=== PATIENT | female | born 1945 | race Caucasian/White ===

== ENCOUNTER 2018-10-15 18:48 | Emergency (ER) | payer OTHER, MEDICAID ==
[~2018-10-15] VITALS: Ht 167.6 cm; Wt 55.0 kg
[2018-10-15] MEDS ORDERED: ACETAMINOPHEN 325MG TABLET PO STA (21:33)
[2018-10-15] MEDS ORDERED: LEVOFLOXACIN 750MG PREMIX 150 ML IV ONE (21:45)
[2018-10-15] MEDS ORDERED: SODIUM CHLORIDE 0.9% 1000ML BAG (SEPSIS BOLUS) IV ONE (21:45)
[2018-10-15 21:58] LABS: BASOPHILS % 0.6 % (0.0-2.0); EOSINOPHILS % 0.3 % (0.0-5.0); HEMATOCRIT. 39.1 % (36.0-48.0); HEMOGLOBIN. 12.9 g/dL (12.0-16.0); MEAN CORPUSCULAR HEMOGLOBIN 32.5 pg (28.0-32.0); MEAN CORPUSCULAR VOLUME 98.1 fL (81.0-99.0); MEAN PLATELET VOLUME 9.7 fl (7.4-10.4); MONOCYTES % 8.6 % (2.0-8.0); NEUTROPHILS % 80.5 % (40.0-76.0); PLATELET 226 x1000/uL (130-400); RED BLOOD CELL COUNT 3.99 mill/uL (4.2-5.4)
[2018-10-15 22:02] LABS: CHLORIDE 106 mEq/L (98-107)
[2018-10-15 22:04] LABS: PARTIAL THROMBOPLASTIN TIME 30.8 sec (23.4-31.0); PROTHROMBIN TIME 10.8 sec (9.6-11.0)
[2018-10-16 01:49] VITALS: BP 127/65
== END 2018-10-16 01:49 | disposition short-term general hospital (02) ==
LOC: ER 18:48
DX: J18.9 Pneumonia, unspecified organism (principal); R50.9 Fever, unspecified; R41.82 Altered mental status, unspecified; M25.552 Pain in left hip; Z88.6 Allergy status to analgesic agent; Z88.2 Allergy status to sulfonamides; Z86.73 Personal history of transient ischemic attack (TIA), and cerebral infarction without residual deficits; W19.XXXA Unspecified fall, initial encounter; Y93.89 Activity, other specified; Y92.89 Other specified places as the place of occurrence of the external cause
CPT/HCPCS: 36415; 70450; 71045; 73502; 80053; 83605; 84145; 84484; 85025; 85610; 85730; 87040; 93005; 96361; 96374; 99285; J1956; J7030

== ENCOUNTER 2019-01-14 02:17 | Inpatient (IN) | payer OTHER, MEDICAID ==
[~2019-01-14] VITALS: Ht 163.8 cm; Wt 43.5 kg
[2019-01-14] MEDS ORDERED: SODIUM CHLORIDE 0.9% 1,000 ML IV ONE (03:16)
[2019-01-14] MEDS ORDERED: NITROGLYCERIN OINT 1GM/INCH UDPKT TD ONE (03:30)
[2019-01-14 03:38] LABS: EOSINOPHILS % 1.1 % (0.0-5.0); HEMATOCRIT. 42.1 % (36.0-48.0); HEMOGLOBIN. 14.2 g/dL (12.0-16.0); LYMPHOCYTES % 14.3 % (20.0-50.0); MEAN CORPUSCULAR HEMOGLOBIN 31.9 pg (28.0-32.0); MEAN CORPUSCULAR VOLUME 94.5 fL (81.0-99.0); MEAN PLATELET VOLUME 9.1 fl (7.4-10.4); MONOCYTES % 9.6 % (2.0-8.0); PLATELET 302 x1000/uL (130-400); RED BLOOD CELL COUNT 4.45 mill/uL (4.2-5.4); RED CELL DISTRIBUTION WIDTH 13.6 % (11.6-14.6)
[2019-01-14 03:43] LABS: CHLORIDE 99 mEq/L (98-107)
[2019-01-14] MEDS ORDERED: POTASSIUM CHLORIDE 20MEQ TABLET SR PO ONE (05:30)
[2019-01-14 10:30] VITALS: BP 154/81
[2019-01-14 10:32] VITALS: BP 154/81
[2019-01-14] MEDS ORDERED: ONDANSETRON HCL 4MG/2ML INJ IV PRN (11:15)
[2019-01-14] MEDS ORDERED: POTASSIUM CHLORIDE 20MEQ TABLET SR PO SCH (11:15)
[2019-01-14] MEDS ORDERED: GUAIFENESIN-DM 200MG-20MG/10ML UDC PO PRN (12:15)
[2019-01-14] MEDS ORDERED: IPRATROPIUM/ALBUTEROL 0.5-3(2.5)MG/3ML NEB HHN PRN (12:15)
[2019-01-14] MEDS: ENOXAPARIN 40MG/0.4ML SYR SUBCUT SCH (12:59)
[2019-01-14] MEDS: NICOTINE 21MG PATCH TD SCH (13:00)
[2019-01-14] MEDS: CLOPIDOGREL 75MG TABLET PO SCH (13:00)
[2019-01-14 16:00] VITALS: BP 140/66
[2019-01-14 16:41] LABS: LDL CHOLESTEROL 84 mg/dL (5-100)
[2019-01-14 16:43] LABS: HDL CHOLESTEROL 43 mg/dL (40-59)
[2019-01-14] MEDS: METHYLPREDNISOLONE SOD SUCC 40 MG/ML VIAL IV SCH (18:22)
[2019-01-14] MEDS ORDERED: LEVOFLOXACIN 500MG PREMIX 100 ML IV SCH (18:45)
[2019-01-14] MEDS ORDERED: PNEUMOCOCCAL 23-VAL P-SAC VAC 0.5 ML IM ONE (19:00)
[2019-01-14] MEDS: BUDESONIDE 0.5MG/2ML NEB HHN SCH (19:45)
[2019-01-14 20:00] VITALS: BP 141/70
[2019-01-14] MEDS ORDERED: DONE5TAB33 PO (20:04)
[2019-01-14] MEDS ORDERED: CLOP75TA33 PO (20:04)
[2019-01-14] MEDS ORDERED: LORA10TA7 PO (20:04)
[2019-01-14] MEDS ORDERED: VALS320T16 PO (20:04)
[2019-01-14] MEDS ORDERED: FLUO40CA49 PO (20:04)
[2019-01-14] MEDS ORDERED: ACYC400T5 PO (20:04)
[2019-01-14] MEDS ORDERED: METO-396 PO (20:04)
[2019-01-14] MEDS ORDERED: LEVO88TA7 PO (20:04)
[2019-01-15] VITALS: BP 167/77
[2019-01-15] MEDS: CLONIDINE 0.1MG TABLET PO PRN ×2 (00:54→17:49)
[2019-01-15] MEDS: METHYLPREDNISOLONE SOD SUCC 40 MG/ML VIAL IV SCH ×2 (01:00→09:05)
[2019-01-15] MEDS: ACETAMINOPHEN 325MG TABLET PO PRN ×2 (02:05→13:31)
[2019-01-15] MEDS ORDERED: HYDROCODONE/ACETAMINOPHEN 5/325MG TABLET PO PRN (03:00)
[2019-01-15 04:00] VITALS: BP 122/56
[2019-01-15 06:42] LABS: HEMATOCRIT. 39.5 % (36.0-48.0); HEMOGLOBIN. 13.3 g/dL (12.0-16.0); MEAN CORPUSCULAR HEMOGLOBIN 32.2 pg (28.0-32.0); MEAN CORPUSCULAR VOLUME 95.4 fL (81.0-99.0); MEAN PLATELET VOLUME 9.3 fl (7.4-10.4); PLATELET 252 x1000/uL (130-400); RED BLOOD CELL COUNT 4.14 mill/uL (4.2-5.4); RED CELL DISTRIBUTION WIDTH 13.7 % (11.6-14.6)
[2019-01-15 07:12] LABS: CHLORIDE 106 mEq/L (98-107)
[2019-01-15 08:00] VITALS: BP 158/68
[2019-01-15] MEDS: CLOPIDOGREL 75MG TABLET PO SCH (09:04)
[2019-01-15] MEDS: ENOXAPARIN 40MG/0.4ML SYR SUBCUT SCH (09:04)
[2019-01-15] MEDS: NICOTINE 21MG PATCH TD SCH (09:05)
[2019-01-15] MEDS ORDERED: POTASSIUM CHLORIDE 20MEQ TABLET SR PO NR (11:15)
[2019-01-15 12:00] VITALS: BP 142/66
[2019-01-15 14:19] LABS: PLATELET ESTIMATE NORMAL
[2019-01-15 15:53] LABS: BG BASE EXCESS -4.3 mmol/L (-2.0-2.0); BG CARBOXYHEMOGLOBIN 0.4 % (0.5-1.5); BG DEOXYHEMOGLOBIN 2.3 % (0.0-5.0); BG FRACTION INSPIRED OXYGEN 21; BG METHEMOGLOBIN 0.1 % (0.0-1.5); BG OXYGEN SATURATION 97.7 % (92.0-98.5); BG OXYHEMOGLOBIN 97.2 % (94.0-97.0); BG PCO2 25.8 mmHg (35.0-45.0); BG PH 7.461 (7.350-7.450); BG PO2 94.1 mmHg (75.0-100.0); BG SAMPLE SITE LEFT BRACHIAL; BG VENT MODE ROOM AIR
[2019-01-15 16:00] VITALS: BP 186/77
[2019-01-15] MEDS ORDERED: AMOXICILLIN/POTASSIUM CLAVULANATE 875/125MG TAB PO SCH (18:00)
[2019-01-15] MEDS ORDERED: LEVOFLOXACIN 250MG PREMIX 50 ML IV SCH (18:00)
[2019-01-15] MEDS ORDERED: METHYLPREDNISOLONE SOD SUCC 40 MG/ML VIAL IV SCH (18:00)
[2019-01-15 19:31] VITALS: BP 145/67
[2019-01-15] MEDS: BUDESONIDE 0.5MG/2ML NEB HHN SCH (19:52)
== END 2019-01-15 20:00 | disposition home or self-care (01) | DRG 190 ==
LOC: ER 02:17 → 5WST 05:09 → EDBEDREQTM 05:16 → EDBEDREQ 05:16 → ENRESERV 08:14
PROVIDERS: ADMIT Internal Medicine; ATTEND Internal Medicine
DX: J44.1 Chronic obstructive pulmonary disease with (acute) exacerbation (principal); I50.33 Acute on chronic diastolic (congestive) heart failure; J44.0 Chronic obstructive pulmonary disease with (acute) lower respiratory infection; I11.0 Hypertensive heart disease with heart failure; M94.0 Chondrocostal junction syndrome [Tietze]; E87.6 Hypokalemia; F17.210 Nicotine dependence, cigarettes, uncomplicated; R06.03 Acute respiratory distress; R73.9 Hyperglycemia, unspecified; T38.0X5A Adverse effect of glucocorticoids and synthetic analogues, initial encounter; J20.9 Acute bronchitis, unspecified; Z88.8 Allergy status to other drugs, medicaments and biological substances; Z88.2 Allergy status to sulfonamides; Z88.6 Allergy status to analgesic agent; Z86.73 Personal history of transient ischemic attack (TIA), and cerebral infarction without residual deficits; Z71.6 Tobacco abuse counseling; Y92.89 Other specified places as the place of occurrence of the external cause
CPT/HCPCS: 36415; 36600; 71045; 71250; 80048; 80061; 82375; 82805; 83036; 83880; 84443; 84484; 85379; 90732; 93005; 93306; 93970; 94640; 96360; 96361; 99285; J1650; J1956; J2920; J7030; J7620; J7626

== ENCOUNTER 2019-01-22 08:49 | Inpatient (IN) | payer OTHER, MEDICAID ==
[~2019-01-22] VITALS: Ht 162.6 cm; Wt 45.4 kg
[~2019-01-22 08:49] MED LIST: ACYC400T5 PO; CLOP75TA33 PO; DONE5TAB33 PO; FLUO40CA49 PO; LEVO88TA7 PO; LORA10TA7 PO; METO-396 PO; VALS320T16 PO
[2019-01-22 09:30] LABS: CHLORIDE 104 mEq/L (98-107)
[2019-01-22 09:34] LABS: BASOPHILS % 0.2 % (0.0-2.0); EOSINOPHILS % 0.7 % (0.0-5.0); ETHANOL BLOOD < 10 mg/dL; HEMATOCRIT. 39.2 % (36.0-48.0); HEMOGLOBIN. 13.3 g/dL (12.0-16.0); LYMPHOCYTES % 17.7 % (20.0-50.0); MEAN CORPUSCULAR HEMOGLOBIN 32.6 pg (28.0-32.0); MEAN CORPUSCULAR VOLUME 96.1 fL (81.0-99.0); MEAN PLATELET VOLUME 8.4 fl (7.4-10.4); MONOCYTES % 10.9 % (2.0-8.0); NEUTROPHILS % 70.5 % (40.0-76.0); PLATELET 330 x1000/uL (130-400); RED BLOOD CELL COUNT 4.08 mill/uL (4.2-5.4); RED CELL DISTRIBUTION WIDTH 14.2 % (11.6-14.6)
[2019-01-22 10:17] LABS: PROTHROMBIN TIME 10.5 sec (9.6-11.0)
[2019-01-22] MEDS ORDERED: POTASSIUM CHLORIDE 20MEQ TABLET SR PO ONE (11:30)
[2019-01-22 12:38] LABS: CLARITY URINE CLEAR (CLEAR); COLOR URINE YELLOW (YELLOW); KETONES URINE NEGATIVE (NEGATIVE); LEUKOCYTE ESTERASE URINE TRACE (NEGATIVE); NITRITE URINE NEGATIVE (NEGATIVE); OCCULT BLOOD URINE TRACE (NEGATIVE); PROTEIN URINE NEGATIVE (NEGATIVE); SPECIFIC GRAVITY URINE 1.015 (1.005-1.030); UROBILINOGEN URINE 0.2 E.U./dL (0.2-1.0)
[2019-01-22 12:50] LABS: *AMPHETAMINES SCREEN URINE NEGATIVE (NEGATIVE); *BARBITURATES SCREEN URINE NEGATIVE (NEGATIVE); *BENZODIAZEPINES SCREEN URINE NEGATIVE (NEGATIVE); *COCAINE SCREEN URINE NEGATIVE (NEGATIVE)
[2019-01-22 12:52] LABS: CANNABINOID URINE SCREEN NEGATIVE (NEGATIVE); METHADONE URINE SCREEN NEGATIVE (NEGATIVE); OPIATES URINE SCREEN PRESUMTIVE POSITIVE (NEGATIVE); PHENCYCLIDINE URINE SCREEN NEGATIVE (NEGATIVE)
[2019-01-22] MEDS ORDERED: ACETAMINOPHEN 325MG TABLET PO ONE (20:30)
[2019-01-23 16:28] LABS: BASOPHILS % 0.8 % (0.0-2.0); EOSINOPHILS % 0.8 % (0.0-5.0); HEMATOCRIT. 43.1 % (36.0-48.0); HEMOGLOBIN. 14.5 g/dL (12.0-16.0); LYMPHOCYTES % 14.6 % (20.0-50.0); MEAN CORPUSCULAR VOLUME 95.2 fL (81.0-99.0); MEAN PLATELET VOLUME 8.4 fl (7.4-10.4); MONOCYTES % 9.8 % (2.0-8.0); PLATELET 339 x1000/uL (130-400); RED BLOOD CELL COUNT 4.53 mill/uL (4.2-5.4); RED CELL DISTRIBUTION WIDTH 13.9 % (11.6-14.6)
[2019-01-23 16:36] LABS: CHLORIDE 103 mEq/L (98-107)
[2019-01-24] MEDS ORDERED: LORAZEPAM 1MG TABLET PO ONE (19:00)
[2019-01-25] MEDS ORDERED: POTASSIUM CHLORIDE 20MEQ TABLET SR PO ONE (09:30)
[2019-01-25 09:49] LABS: CHLORIDE 105 mEq/L (98-107)
[2019-01-25] MEDS ORDERED: LORAZEPAM 0.5MG TABLET PO ONE (14:00)
[2019-01-25] MEDS: LORAZEPAM 0.5MG TABLET PO SCH ×2 (14:32→14:33)
[2019-01-26] MEDS ORDERED: LORAZEPAM 0.5MG TABLET PO ONE (13:30)
[2019-01-26] MEDS ORDERED: DOCUSATE SODIUM 100MG CAPSULE PO PRN (17:45)
[2019-01-26] MEDS ORDERED: GUAIFENESIN 200MG/10ML SUGAR FREE UDC PO PRN (17:45)
[2019-01-26] MEDS ORDERED: MAGNESIUM/ALUMINUM HYDROXIDE/SIMETHICONE 30ML UDC PO PRN (17:45)
[2019-01-26] MEDS ORDERED: DIPHENHYDRAMINE 50MG/ML VIAL IV PRN (17:45)
[2019-01-26] MEDS ORDERED: IPRATROPIUM/ALBUTEROL 0.5-3(2.5)MG/3ML NEB INH PRN (17:45)
[2019-01-26] MEDS ORDERED: ONDANSETRON HCL 4MG/2ML INJ IV PRN (17:45)
[2019-01-26] MEDS ORDERED: ACETAMINOPHEN 650MG SUPP PR PRN (17:45)
[2019-01-26] MEDS: LORAZEPAM 0.5MG TABLET PO PRN (18:20)
[2019-01-26 20:00] VITALS: BP 128/78
[2019-01-26] MEDS ORDERED: IPRATROPIUM/ALBUTEROL 0.5-3(2.5)MG/3ML NEB INH SCH (20:00)
[2019-01-26] MEDS ORDERED: NA PHOS,M-B/NA PHOS,DI-BA ENEMA 118ML PR PRN (21:00)
[2019-01-26] MEDS ORDERED: BUDESONIDE 0.5MG/2ML NEB HHN SCH (21:30)
[2019-01-26] MEDS ORDERED: ENOXAPARIN 40MG/0.4ML SYR SUBCUT SCH (21:45)
[2019-01-26 22:30] VITALS: BP 128/78
[2019-01-27 00:02] VITALS: BP 115/60
[2019-01-27 04:00] VITALS: BP 112/77
[2019-01-27 07:21] VITALS: BP 169/82
[2019-01-27 08:16] LABS: BASOPHILS % 0.7 % (0.0-2.0); EOSINOPHILS % 1.2 % (0.0-5.0); HEMATOCRIT. 38.5 % (36.0-48.0); HEMOGLOBIN. 13.1 g/dL (12.0-16.0); LYMPHOCYTES % 18.1 % (20.0-50.0); MEAN CORPUSCULAR HEMOGLOBIN 32.7 pg (28.0-32.0); MEAN CORPUSCULAR VOLUME 96.1 fL (81.0-99.0); MEAN PLATELET VOLUME 8.8 fl (7.4-10.4); MONOCYTES % 9.6 % (2.0-8.0); NEUTROPHILS % 70.4 % (40.0-76.0); PLATELET 285 x1000/uL (130-400); RED CELL DISTRIBUTION WIDTH 14.1 % (11.6-14.6)
[2019-01-27] MEDS: CLONIDINE 0.1MG TABLET PO PRN (08:17)
[2019-01-27 08:25] LABS: CHLORIDE 103 mEq/L (98-107)
[2019-01-27 08:33] LABS: LDL CHOLESTEROL 113 mg/dL (5-100)
[2019-01-27 08:35] LABS: HDL CHOLESTEROL 46 mg/dL (40-59)
[2019-01-27 12:21] VITALS: BP 129/69
[2019-01-27] MEDS: LORAZEPAM 0.5MG TABLET PO PRN ×2 (14:05→19:10)
[2019-01-27] MEDS: ACETAMINOPHEN 325MG TABLET PO PRN (14:06)
[2019-01-27 15:09] VITALS: BP 152/68
[2019-01-27] MEDS: HYDROCODONE/ACETAMINOPHEN 5/325MG TABLET PO PRN (15:51)
[2019-01-27] MEDS ORDERED: ENOXAPARIN 30MG/0.3ML SYR SUBCUT SCH (21:00)
[2019-01-27] MEDS ORDERED: ATORVASTATIN CALCIUM 20MG TABLET PO SCH (21:00)
[2019-01-28 06:50] VITALS: BP 148/71
[2019-01-28 08:00] VITALS: BP 145/73
[2019-01-28] MEDS: ACETAMINOPHEN 325MG TABLET PO PRN (08:35)
[2019-01-28] MEDS: HYDROCODONE/ACETAMINOPHEN 5/325MG TABLET PO PRN ×2 (10:27→16:25)
[2019-01-28 12:00] VITALS: BP 130/65
[2019-01-28] MEDS: LORAZEPAM 0.5MG TABLET PO PRN (12:53)
[2019-01-28 16:00] VITALS: BP 132/69
[2019-01-28] MEDS ORDERED: NICOTINE 7MG PATCH TD SCH (16:30)
[2019-01-28] MEDS: CLONIDINE 0.1MG TABLET PO PRN (16:42)
[2019-01-28] MEDS ORDERED: NICOTINE 14MG PATCH TD SCH (17:00)
[2019-01-28 18:11] VITALS: BP 132/71
== END 2019-01-28 18:50 | disposition home or self-care (01) | DRG 917 ==
LOC: ER 08:49 → 8WST 01-24 23:00 → UNDOADMIN 01-24 23:00 → 8WST 01-26 13:58 → EDBEDREQ 01-26 14:03 → CANRESERV 01-26 16:20 → ENRESERV 01-26 16:20 → 6EST 01-27 09:18 → 8WST 01-27 09:18 → UNDODISIN 01-28 18:50
PROVIDERS: ADMIT Internal Medicine; ATTEND Internal Medicine
DX: T50.902A Poisoning by unspecified drugs, medicaments and biological substances, intentional self-harm, initial encounter (principal); I50.33 Acute on chronic diastolic (congestive) heart failure; R45.851 Suicidal ideations; J44.1 Chronic obstructive pulmonary disease with (acute) exacerbation; J44.0 Chronic obstructive pulmonary disease with (acute) lower respiratory infection; F03.90 Unspecified dementia, unspecified severity, without behavioral disturbance, psychotic disturbance, mood disturbance, and anxiety; J20.9 Acute bronchitis, unspecified; I11.0 Hypertensive heart disease with heart failure; F17.210 Nicotine dependence, cigarettes, uncomplicated; R73.9 Hyperglycemia, unspecified; F32.9 Major depressive disorder, single episode, unspecified; Z86.73 Personal history of transient ischemic attack (TIA), and cerebral infarction without residual deficits; Z91.5 Personal history of self-harm; Z88.2 Allergy status to sulfonamides; Z88.6 Allergy status to analgesic agent; Z88.8 Allergy status to other drugs, medicaments and biological substances; Y92.89 Other specified places as the place of occurrence of the external cause
CPT/HCPCS: 36415; 80061; 80305; 80320; 81003; 82962; 93005; 97161; 99285; J1200; J1650; G0480

== ENCOUNTER 2019-07-19 13:14 | Inpatient (IN) | payer OTHER, MEDICAID ==
[~2019-07-19] VITALS: Ht 162.6 cm; Wt 49.0 kg
[2019-07-19] MEDS ORDERED: SODIUM CHLORIDE 0.9% 1,000 ML IV ONE (14:49)
[2019-07-19] MEDS ORDERED: ONDANSETRON HCL 4MG/2ML INJ IV STA (14:49)
[2019-07-19] MEDS ORDERED: LORAZEPAM 2MG/ML CPJ IV ONE ×2 (15:00→17:45)
[2019-07-19 15:34] LABS: BASOPHILS % 0.6 % (0.0-2.0); HEMATOCRIT. 38.5 % (36.0-48.0); HEMOGLOBIN. 12.5 g/dL (12.0-16.0); LYMPHOCYTES % 19.4 % (20.0-50.0); MEAN CORPUSCULAR HEMOGLOBIN 31.5 pg (28.0-32.0); MEAN CORPUSCULAR VOLUME 97.1 fL (81.0-99.0); MEAN PLATELET VOLUME 9.3 fl (7.4-10.4); MONOCYTES % 7.2 % (2.0-8.0); NEUTROPHILS % 71.8 % (40.0-76.0); PLATELET 250 x1000/uL (130-400); RED BLOOD CELL COUNT 3.96 mill/uL (4.2-5.4)
[2019-07-19 15:40] LABS: CHLORIDE 110 mEq/L (98-107)
[2019-07-19 15:42] LABS: PARTIAL THROMBOPLASTIN TIME 30.5 sec (23.4-31.0)
[2019-07-19 15:44] LABS: ETHANOL BLOOD < 10 mg/dL
[2019-07-19 17:24] LABS: CLARITY URINE CLOUDY (CLEAR); COLOR URINE YELLOW (YELLOW); KETONES URINE NEGATIVE (NEGATIVE); LEUKOCYTE ESTERASE URINE TRACE (NEGATIVE); NITRITE URINE NEGATIVE (NEGATIVE); OCCULT BLOOD URINE 2+ (NEGATIVE); PH URINE 5.5 (4.5-8.0); PROTEIN URINE TRACE (NEGATIVE); SPECIFIC GRAVITY URINE 1.031 (1.005-1.030)
[2019-07-19 17:44] LABS: *BENZODIAZEPINES SCREEN URINE PRESUMTIVE POSITIVE (NEGATIVE); *COCAINE SCREEN URINE NEGATIVE (NEGATIVE); METHADONE URINE SCREEN NEGATIVE (NEGATIVE); OPIATES URINE SCREEN PRESUMTIVE POSITIVE (NEGATIVE)
[2019-07-19 17:45] LABS: *AMPHETAMINES SCREEN URINE NEGATIVE (NEGATIVE); *BARBITURATES SCREEN URINE NEGATIVE (NEGATIVE); CANNABINOID URINE SCREEN NEGATIVE (NEGATIVE); PHENCYCLIDINE URINE SCREEN NEGATIVE (NEGATIVE)
[2019-07-19] MEDS ORDERED: CEFTRIAXONE 1 G PREMIX 50 ML IV ONE (19:00)
[2019-07-19 22:45] VITALS: BP 171/70
[2019-07-19] MEDS ORDERED: ALPR0.25 PO (23:55)
[2019-07-19] MEDS ORDERED: HYDR-3282 PO (23:56)
[2019-07-20 00:25] VITALS: BP 171/70
[2019-07-20] MEDS ORDERED: LORATADINE 10MG TABLET PO PRN (00:30)
[2019-07-20] MEDS ORDERED: IPRATROPIUM/ALBUTEROL 0.5-3(2.5)MG/3ML NEB HHN PRN (00:30)
[2019-07-20] MEDS ORDERED: ACETAMINOPHEN 325MG TABLET PO PRN (00:45)
[2019-07-20] MEDS: CLONIDINE 0.1MG TABLET PO PRN (01:02)
[2019-07-20 04:00] VITALS: BP 113/50
[2019-07-20] MEDS: LEVOTHYROXINE SODIUM 88MCG TABLET PO SCH (06:44)
[2019-07-20 07:04] LABS: BASOPHILS % 0.8 % (0.0-2.0); EOSINOPHILS % 1.4 % (0.0-5.0); HEMATOCRIT. 32.9 % (36.0-48.0); HEMOGLOBIN. 10.8 g/dL (12.0-16.0); LYMPHOCYTES % 19.5 % (20.0-50.0); MEAN CORPUSCULAR HEMOGLOBIN 31.9 pg (28.0-32.0); MEAN CORPUSCULAR VOLUME 96.6 fL (81.0-99.0); MEAN PLATELET VOLUME 9.2 fl (7.4-10.4); MONOCYTES % 9.6 % (2.0-8.0); NEUTROPHILS % 68.7 % (40.0-76.0); PLATELET 192 x1000/uL (130-400); RED BLOOD CELL COUNT 3.41 mill/uL (4.2-5.4); RED CELL DISTRIBUTION WIDTH 17.1 % (11.6-14.6)
[2019-07-20 08:00] VITALS: BP 118/47
[2019-07-20] MEDS: LOSARTAN POTASSIUM 100 MG TABLET PO SCH (09:00)
[2019-07-20] MEDS: METOPROLOL TARTRATE 50MG TABLET PO SCH ×2 (09:00→20:26)
[2019-07-20] MEDS: ENOXAPARIN 30MG/0.3ML SYR SUBCUT SCH (09:13)
[2019-07-20] MEDS: FLUOXETINE HCL 20MG CAPSULE PO SCH (09:14)
[2019-07-20] MEDS: CLOPIDOGREL 75MG TABLET PO SCH (09:14)
[2019-07-20] MEDS: DONEPEZIL HCL 5MG TABLET PO SCH (09:14)
[2019-07-20 12:00] VITALS: BP 110/64
[2019-07-20] MEDS: ALPRAZOLAM 0.25 MG TABLET PO PRN (15:18)
[2019-07-20 16:00] VITALS: BP 140/67
[2019-07-20] MEDS: TRAMADOL 50MG TABLET PO PRN (18:55)
[2019-07-20 20:00] VITALS: BP 140/64
[2019-07-20] MEDS: CEFTRIAXONE 1 G PREMIX 50 ML IV SCH (20:26)
[2019-07-21] VITALS: BP 146/56
[2019-07-21] MEDS: IPRATROPIUM/ALBUTEROL 0.5-3(2.5)MG/3ML NEB HHN SCH ×4 (00:23→21:00)
[2019-07-21 04:00] VITALS: BP 134/59
[2019-07-21] MEDS: LEVOTHYROXINE SODIUM 88MCG TABLET PO SCH (06:33)
[2019-07-21 08:00] VITALS: BP 134/56
[2019-07-21] MEDS: ENOXAPARIN 30MG/0.3ML SYR SUBCUT SCH (08:35)
[2019-07-21] MEDS: CLOPIDOGREL 75MG TABLET PO SCH (08:35)
[2019-07-21] MEDS: DONEPEZIL HCL 5MG TABLET PO SCH (08:36)
[2019-07-21] MEDS: LOSARTAN POTASSIUM 100 MG TABLET PO SCH (08:36)
[2019-07-21] MEDS: FLUOXETINE HCL 20MG CAPSULE PO SCH (08:36)
[2019-07-21] MEDS: METOPROLOL TARTRATE 50MG TABLET PO SCH ×2 (08:37→20:37)
[2019-07-21] MEDS: BUDESONIDE 0.5MG/2ML NEB HHN SCH ×2 (08:59→21:00)
[2019-07-21] MEDS: TRAMADOL 50MG TABLET PO PRN (09:23)
[2019-07-21] MEDS: ALPRAZOLAM 0.25 MG TABLET PO PRN (10:42)
[2019-07-21 12:00] VITALS: BP 129/60
[2019-07-21 16:00] VITALS: BP 157/70
[2019-07-21 20:00] VITALS: BP 129/64
[2019-07-21] MEDS: CEFTRIAXONE 1 G PREMIX 50 ML IV SCH (20:36)
[2019-07-22] VITALS: BP 147/56
[2019-07-22] MEDS: IPRATROPIUM/ALBUTEROL 0.5-3(2.5)MG/3ML NEB HHN SCH ×4 (02:28→22:00)
[2019-07-22 04:00] VITALS: BP 128/47
[2019-07-22] MEDS: LEVOTHYROXINE SODIUM 88MCG TABLET PO SCH (06:07)
[2019-07-22 08:00] VITALS: BP 164/63
[2019-07-22] MEDS: BUDESONIDE 0.5MG/2ML NEB HHN SCH ×2 (08:46→22:00)
[2019-07-22] MEDS: METOPROLOL TARTRATE 50MG TABLET PO SCH ×2 (08:54→21:28)
[2019-07-22] MEDS: CLOPIDOGREL 75MG TABLET PO SCH (08:54)
[2019-07-22] MEDS: DONEPEZIL HCL 5MG TABLET PO SCH (08:54)
[2019-07-22] MEDS: FLUOXETINE HCL 20MG CAPSULE PO SCH (08:54)
[2019-07-22] MEDS: LOSARTAN POTASSIUM 100 MG TABLET PO SCH (08:54)
[2019-07-22] MEDS: ENOXAPARIN 30MG/0.3ML SYR SUBCUT SCH (08:56)
[2019-07-22] MEDS: CLONIDINE 0.1MG TABLET PO PRN (10:09)
[2019-07-22] MEDS: ALPRAZOLAM 0.25 MG TABLET PO PRN ×2 (11:22→21:28)
[2019-07-22 12:00] VITALS: BP 123/79
[2019-07-22 16:00] VITALS: BP_SYST 141; BP_SYST 162; BP_DIAS 101; BP_DIAS 56
[2019-07-22 20:00] VITALS: BP 147/90
[2019-07-22] MEDS: CEFTRIAXONE 1 G PREMIX 50 ML IV SCH (21:27)
[2019-07-22] MEDS: TRAMADOL 50MG TABLET PO PRN (21:28)
[2019-07-23] VITALS: BP 118/59
[2019-07-23 04:00] VITALS: BP 124/53
[2019-07-23] MEDS: IPRATROPIUM/ALBUTEROL 0.5-3(2.5)MG/3ML NEB HHN SCH ×4 (04:04→20:46)
[2019-07-23] MEDS: LEVOTHYROXINE SODIUM 88MCG TABLET PO SCH (06:19)
[2019-07-23 08:49] VITALS: BP 133/34
[2019-07-23] MEDS: FLUOXETINE HCL 20MG CAPSULE PO SCH (08:53)
[2019-07-23] MEDS: LOSARTAN POTASSIUM 100 MG TABLET PO SCH (08:53)
[2019-07-23] MEDS: DONEPEZIL HCL 5MG TABLET PO SCH (08:54)
[2019-07-23] MEDS: METOPROLOL TARTRATE 50MG TABLET PO SCH ×2 (08:54→21:06)
[2019-07-23] MEDS: CLOPIDOGREL 75MG TABLET PO SCH (08:54)
[2019-07-23] MEDS: ENOXAPARIN 30MG/0.3ML SYR SUBCUT SCH (08:55)
[2019-07-23 12:09] VITALS: BP 148/51
[2019-07-23 16:34] VITALS: BP 155/53
[2019-07-23] MEDS: ALPRAZOLAM 0.25 MG TABLET PO PRN (18:58)
[2019-07-23 20:00] VITALS: BP 141/51
[2019-07-23] MEDS: BUDESONIDE 0.5MG/2ML NEB HHN SCH (20:46)
[2019-07-23] MEDS: CEFTRIAXONE 1 G PREMIX 50 ML IV SCH (21:06)
[2019-07-24] VITALS: BP 110/59
[2019-07-24] MEDS: IPRATROPIUM/ALBUTEROL 0.5-3(2.5)MG/3ML NEB HHN SCH ×3 (02:16→14:00)
[2019-07-24 04:00] VITALS: BP 147/68
[2019-07-24] MEDS: LEVOTHYROXINE SODIUM 88MCG TABLET PO SCH (06:11)
[2019-07-24 08:00] VITALS: BP 149/69
[2019-07-24] MEDS: CLOPIDOGREL 75MG TABLET PO SCH (08:13)
[2019-07-24] MEDS: FLUOXETINE HCL 20MG CAPSULE PO SCH (08:14)
[2019-07-24] MEDS: DONEPEZIL HCL 5MG TABLET PO SCH (08:14)
[2019-07-24] MEDS: METOPROLOL TARTRATE 50MG TABLET PO SCH (08:14)
[2019-07-24] MEDS: LOSARTAN POTASSIUM 100 MG TABLET PO SCH (08:14)
[2019-07-24] MEDS: ENOXAPARIN 30MG/0.3ML SYR SUBCUT SCH (08:20)
[2019-07-24 11:49] VITALS: BP 102/63
[2019-07-24 13:14] VITALS: BP 102/63
== END 2019-07-24 14:00 | disposition home or self-care (01) | DRG 917 ==
LOC: ER 13:51 → 6WST 18:53 → EDBEDREQTM 19:06 → EDBEDREQ 19:06 → ENRESERV 20:30 → CANRESERV 20:30 → ENRESERV 20:36
PROVIDERS: ADMIT Internal Medicine; ATTEND Internal Medicine
DX: T40.601A Poisoning by unspecified narcotics, accidental (unintentional), initial encounter (principal); I50.33 Acute on chronic diastolic (congestive) heart failure; G93.41 Metabolic encephalopathy; J44.0 Chronic obstructive pulmonary disease with (acute) lower respiratory infection; N39.0 Urinary tract infection, site not specified; J84.9 Interstitial pulmonary disease, unspecified; K44.9 Diaphragmatic hernia without obstruction or gangrene; J20.9 Acute bronchitis, unspecified; F17.210 Nicotine dependence, cigarettes, uncomplicated; F29 Unspecified psychosis not due to a substance or known physiological condition; I11.0 Hypertensive heart disease with heart failure; E03.9 Hypothyroidism, unspecified; E11.9 Type 2 diabetes mellitus without complications; Z86.73 Personal history of transient ischemic attack (TIA), and cerebral infarction without residual deficits; Y92.89 Other specified places as the place of occurrence of the external cause; Z88.8 Allergy status to other drugs, medicaments and biological substances; Z88.2 Allergy status to sulfonamides; Z79.899 Other long term (current) drug therapy; Z79.02 Long term (current) use of antithrombotics/antiplatelets
CPT/HCPCS: 36415; 71045; 80048; 80053; 80061; 80305; 80320; 81003; 82962; 83880; 84443; 84484; 85025; 93005; 94640; 96365; 97162; 99285; C1893; J0696; J1650; J2060; J2405; J7030; J7626; G0480

== ENCOUNTER 2019-10-11 09:32 | Emergency (ER) | payer OTHER, MEDICAID ==
[~2019-10-11] VITALS: Ht 160 cm; Wt 54.0 kg
[2019-10-11 10:05] LABS: BASOPHILS % 1.3 % (0.0-2.0); EOSINOPHILS % 2.5 % (0.0-5.0); HEMATOCRIT. 39.6 % (36.0-48.0); HEMOGLOBIN. 13.2 g/dL (12.0-16.0); LYMPHOCYTES % 17.7 % (20.0-50.0); MEAN CORPUSCULAR HEMOGLOBIN 33.4 pg (28.0-32.0); MEAN CORPUSCULAR VOLUME 100.6 fL (81.0-99.0); MEAN PLATELET VOLUME 9.3 fl (7.4-10.4); MONOCYTES % 8.9 % (2.0-8.0); NEUTROPHILS % 69.6 % (40.0-76.0); PLATELET 290 x1000/uL (130-400); RED BLOOD CELL COUNT 3.94 mill/uL (4.2-5.4); RED CELL DISTRIBUTION WIDTH 14.5 % (11.6-14.6)
[2019-10-11 10:10] LABS: CHLORIDE 106 mEq/L (98-107); PROTHROMBIN TIME 10.7 sec (9.6-11.0)
[2019-10-11 10:43] LABS: CLARITY URINE CLEAR (CLEAR); COLOR URINE YELLOW (YELLOW); KETONES URINE NEGATIVE (NEGATIVE); LEUKOCYTE ESTERASE URINE 1+ (NEGATIVE); NITRITE URINE NEGATIVE (NEGATIVE); OCCULT BLOOD URINE NEGATIVE (NEGATIVE); PROTEIN URINE NEGATIVE (NEGATIVE); SPECIFIC GRAVITY URINE 1.015 (1.005-1.030); UROBILINOGEN URINE 0.2 E.U./dL (0.2-1.0)
[2019-10-11] MEDS ORDERED: SODIUM CHLORIDE 0.9% 1,000 ML IV ONE (11:15)
[2019-10-11] MEDS ORDERED: CEFTRIAXONE 1 G PREMIX 50 ML IV ONE (11:15)
[2019-10-11] MEDS ORDERED: GUAIFENESIN 200MG/10ML SUGAR FREE UDC PO PRN (12:45)
[2019-10-11] MEDS ORDERED: LORAZEPAM 0.5MG TABLET PO PRN (12:45)
[2019-10-11] MEDS ORDERED: SODIUM CHLORIDE 0.45% 1,000 ML IV SCH (12:45)
[2019-10-11] MEDS ORDERED: CLONIDINE 0.1MG TABLET PO PRN (12:45)
[2019-10-11] MEDS ORDERED: ACETAMINOPHEN 325MG TABLET PO PRN (12:45)
[2019-10-11] MEDS ORDERED: BUDESONIDE 0.5MG/2ML NEB HHN SCH (12:45)
[2019-10-11] MEDS ORDERED: HYDRALAZINE 20MG/ML VIAL IV PRN (12:45)
[2019-10-11] MEDS ORDERED: MAGNESIUM/ALUMINUM HYDROXIDE/SIMETHICONE 30ML UDC PO PRN (12:45)
[2019-10-11] MEDS ORDERED: ONDANSETRON HCL 4MG/2ML INJ IV PRN (12:45)
[2019-10-11] MEDS ORDERED: DIPHENHYDRAMINE 50MG/ML VIAL IV PRN (12:45)
[2019-10-11] MEDS ORDERED: ACETAMINOPHEN 650MG SUPP PR PRN (12:45)
[2019-10-11] MEDS ORDERED: HYDROCODONE/ACETAMINOPHEN 5/325MG TABLET PO PRN (12:45)
[2019-10-11] MEDS ORDERED: IPRATROPIUM/ALBUTEROL 0.5-3(2.5)MG/3ML NEB NEB PRN (13:00)
[2019-10-11] MEDS ORDERED: IPRATROPIUM/ALBUTEROL 0.5-3(2.5)MG/3ML NEB NEB SCH (13:00)
[2019-10-11 15:41] LABS: METHADONE URINE SCREEN NEGATIVE (NEGATIVE); OPIATES URINE SCREEN NEGATIVE (NEGATIVE)
[2019-10-11 15:42] LABS: *AMPHETAMINES SCREEN URINE NEGATIVE (NEGATIVE); *BARBITURATES SCREEN URINE NEGATIVE (NEGATIVE); *BENZODIAZEPINES SCREEN URINE PRESUMTIVE POSITIVE (NEGATIVE); *COCAINE SCREEN URINE NEGATIVE (NEGATIVE); CANNABINOID URINE SCREEN NEGATIVE (NEGATIVE); PHENCYCLIDINE URINE SCREEN NEGATIVE (NEGATIVE)
[2019-10-11] MEDS ORDERED: DOCUSATE SODIUM 100MG CAPSULE PO PRN (17:00)
[2019-10-11 18:38] VITALS: BP 161/65
[2019-10-11] MEDS ORDERED: ATORVASTATIN CALCIUM 10MG TABLET PO SCH (21:00)
[2019-10-11] MEDS ORDERED: FAMOTIDINE 20MG TABLET PO SCH (21:00)
[2019-10-12] MEDS ORDERED: NA PHOS,M-B/NA PHOS,DI-BA ENEMA 118ML PR PRN (09:00)
== END 2019-10-11 18:39 | disposition left against medical advice (07) ==
LOC: ER 09:32 → CANRESERV 18:20 → ENRESERV 18:20 → ER 18:39 → CANBEDREQ 10-12 00:45
DX: I63.9 Cerebral infarction, unspecified (principal); I11.0 Hypertensive heart disease with heart failure; I50.33 Acute on chronic diastolic (congestive) heart failure; J44.9 Chronic obstructive pulmonary disease, unspecified; G93.49 Other encephalopathy; F15.10 Other stimulant abuse, uncomplicated; F17.210 Nicotine dependence, cigarettes, uncomplicated; E86.0 Dehydration; Z86.73 Personal history of transient ischemic attack (TIA), and cerebral infarction without residual deficits
CPT/HCPCS: 36415; 70450; 70551; 71045; 80053; 80305; 81003; 82962; 84484; 85025; 85610; 87040; 93005; 93880; 93970; 96361; 96365; 99285; J0696; J7030

== ENCOUNTER 2019-11-04 01:21 | Emergency (ER) | payer OTHER, MEDICAID ==
[~2019-11-04] VITALS: Ht 162.6 cm; Wt 46.0 kg
[2019-11-04] MEDS ORDERED: ACETAMINOPHEN 325MG TABLET PO ONE (02:00)
[2019-11-04] MEDS ORDERED: HYDROCODONE/ACETAMINOPHEN 5/325MG TABLET PO ONE (03:30)
[2019-11-04 05:45] VITALS: BP 154/75
== END 2019-11-04 05:46 | disposition home or self-care (01) ==
LOC: ER 01:21
DX: S52.591A Other fractures of lower end of right radius, initial encounter for closed fracture (principal); W18.39XA Other fall on same level, initial encounter; Y93.89 Activity, other specified; Y92.89 Other specified places as the place of occurrence of the external cause; Y99.8 Other external cause status; I10 Essential (primary) hypertension; Z86.73 Personal history of transient ischemic attack (TIA), and cerebral infarction without residual deficits; E03.9 Hypothyroidism, unspecified; Z79.899 Other long term (current) drug therapy; Z88.6 Allergy status to analgesic agent; Z88.2 Allergy status to sulfonamides
CPT/HCPCS: 29125; 73110; 99284

== ENCOUNTER 2019-11-14 23:48 | Emergency (ER) | payer OTHER, MEDICAID ==
[~2019-11-14] VITALS: Ht 162.6 cm; Wt 46.0 kg
[2019-11-15] MEDS ORDERED: HYDROCODONE/ACETAMINOPHEN 10/325MG TABLET PO ONE (00:30)
[2019-11-15 04:00] VITALS: BP 130/76
== END 2019-11-15 04:00 | disposition home or self-care (01) ==
LOC: ER 23:48
DX: S52.501A Unspecified fracture of the lower end of right radius, initial encounter for closed fracture (principal); S52.209A Unspecified fracture of shaft of unspecified ulna, initial encounter for closed fracture; S91.201A Unspecified open wound of right great toe with damage to nail, initial encounter; M79.671 Pain in right foot; I10 Essential (primary) hypertension; I67.82 Cerebral ischemia; Z86.73 Personal history of transient ischemic attack (TIA), and cerebral infarction without residual deficits; Z88.2 Allergy status to sulfonamides; Z88.6 Allergy status to analgesic agent; Z88.8 Allergy status to other drugs, medicaments and biological substances; Z79.899 Other long term (current) drug therapy; X58.XXXA Exposure to other specified factors, initial encounter; W18.39XA Other fall on same level, initial encounter; Y93.89 Activity, other specified; Y92.89 Other specified places as the place of occurrence of the external cause
CPT/HCPCS: 29125; 99284

== ENCOUNTER 2019-11-22 19:23 | Emergency (ER) | payer OTHER, MEDICAID ==
[~2019-11-22] VITALS: Ht 154.9 cm; Wt 54.0 kg
[2019-11-22] MEDS ORDERED: HYDROCODONE/ACETAMINOPHEN 5/325MG TABLET PO ONE (20:15)
[2019-11-23] MEDS ORDERED: ACETAMINOPHEN WITH CODEINE 300/30MG TABLET PO ONE (11:15)
[2019-11-23 12:00] VITALS: BP 158/79
== END 2019-11-23 15:51 | disposition home or self-care (01) ==
LOC: ER 19:23
DX: S52.531A Colles' fracture of right radius, initial encounter for closed fracture (principal); S52.691A Other fracture of lower end of right ulna, initial encounter for closed fracture; R03.0 Elevated blood-pressure reading, without diagnosis of hypertension; X58.XXXA Exposure to other specified factors, initial encounter; Y93.9 Activity, unspecified; Y92.89 Other specified places as the place of occurrence of the external cause; I69.30 Unspecified sequelae of cerebral infarction; Z79.899 Other long term (current) drug therapy; Z88.6 Allergy status to analgesic agent; Z88.8 Allergy status to other drugs, medicaments and biological substances; Z88.2 Allergy status to sulfonamides
CPT/HCPCS: 29125; 73110; 99283